=== PATIENT | female | born 1990 | race American Indian/Alaskan Native ===

== ENCOUNTER 2017-03-14 14:53 | Emergency (ER) | payer SELFPAY ==
[2017-03-14 15:03] VITALS: BP 128/83
== END 2017-03-14 16:25 | disposition left against medical advice (07) ==
LOC: ED 14:53
DX: J11.1 Influenza due to unidentified influenza virus with other respiratory manifestations (principal); Z53.21 Procedure and treatment not carried out due to patient leaving prior to being seen by health care provider
CPT/HCPCS: 93005; 93010